=== PATIENT | female | born 1970 | race Hispanic/Latino ===

== ENCOUNTER 2022-11-30 19:16 | Emergency (ER) | payer OTHER ==
[2022-11-30 19:48] LABS: #Eosinphils 0.1 thou/uL (0.0-0.7); #Monocytes 0.3 thou/uL (0.11-0.59); #Neutrophils 5.6 thou/uL (1.40-6.50); %Basophils 0.1 % (0.0-1.0); %Eosinophils 0.5 % (0.0-10.0); %Lymphocytes 38.8 % (21.0-51.0); %Neutrophils 57.3 % (42.0-75.0); Hematocrit 39.6 % (36.0-47.0); Hemoglobin 13.3 g/dL (12.0-16.0); Mean Corpuscular HGB CONC 33.6 g/dL (32.0-36.0); Mean Corpuscular Hemoglobin 30.2 pg (27.0-31.0); Mean Corpuscular Volume 89.8 fl (78.0-98.0); Mean Platelet Volume 12.1 fL (7.4-10.4); Platelet Count 157 10x3/uL (130-400); RBC Distribution Width 12.2 % (11.5-14.5); Red Blood Cell (RBC) Count 4.41 mill/uL (4.20-5.40); White Blood Cell (WBC) Count 9.9 10x3/uL (4.8-10.8)
[2022-11-30 20:12] LABS: ALT (SGPT) 18 U/L (8-55); AST (SGOT) 18 U/L (5-34); Albumin 3.9 g/dL (3.5-5.0); Alkaline Phosphatase 91 U/L (40-110); Anion Gap 13 mmol/L (10-20); BUN (Urea Nitrogen) 18 mg/dL (9.8-20.1); Bilirubin, Total 0.3 mg/dL (0.2-1.2); Calc. Creatinine Clearance 0 mL/min (70-130); Calcium 8.9 mg/dL (7.8-10.44); Carbon Dioxide 24 mmol/L (22-29); Chloride 105 mmol/L (98-107); Estimated GFR 101; Globulin 2.6 g/dL (2.4-3.5); Glucose 163 mg/dL (70-105); Lipase 9 U/L (8-78); Magnesium 1.7 mg/dL (1.6-2.6); Potassium 3.1 mmol/L (3.5-5.1); Protein, Total 6.5 g/dL (6.0-8.3); Sodium 139 mmol/L (136-145)
[2022-11-30 20:21] LABS: Troponin I Less than 0.010 ng/mL (< 0.028)
[2022-11-30] MEDS ORDERED: Potassium Chloride 20 MEQ TAB ONE (21:15)
== END 2022-11-30 23:40 | disposition home or self-care (01) ==
LOC: ERS 19:16
DX: R55 Syncope and collapse (principal); R11.2 Nausea with vomiting, unspecified; E87.6 Hypokalemia; I10 Essential (primary) hypertension
CPT/HCPCS: 36415; 71045; 80053; 83690; 83735; 83880; 84484; 85025; 93005; 96360; 96361

== ENCOUNTER 2023-03-30 08:33 | Outpatient (CLI) | payer BC, OTHER | END 2023-03-30 08:34 | disposition home or self-care (01) | LOC: BICULT 08:33 | PROVIDERS: ATTEND Nurse Practitioner Family | DX: R19.03 Right lower quadrant abdominal swelling, mass and lump (principal) | CPT/HCPCS: 76700; 76856 ==

== ENCOUNTER 2023-05-07 14:20 | Outpatient (CLI) | payer BC ==
[2023-05-07 15:04] LABS: #Eosinphils 0.1 10x3/uL (0.0-0.5); #Monocytes 0.5 10x3/uL (0.0-1.1); %Basophils 0.5 % (0.0-2.0); %Eosinophils 0.7 % (0.0-6.0); %Lymphocytes 36.1 % (18.0-47.0); %Monocytes 5.5 % (0.0-10.0); %Neutrophils 57.1 % (40.0-75.0); Hemoglobin 13.3 g/dL (12.0-15.5); Mean Corpuscular HGB CONC 33.3 g/dL (32.0-36.0); Mean Corpuscular Hemoglobin 29.6 pg (27.0-33.0); Mean Corpuscular Volume 88.9 fl (81.6-98.3); Mean Platelet Volume 11.9 fl (7.4-10.4); Platelet Count 186 10x3/uL (150-450); RBC Distribution Width 12.2 % (11.5-14.5); White Blood Cell (WBC) Count 8.7 10x3/uL (3.5-10.5)
[2023-05-07 15:15] LABS: ALT (SGPT) 22 U/L (8-55); AST (SGOT) 19 U/L (5-34); Albumin 4.6 g/dL (3.5-5.0); Alkaline Phosphatase 107 U/L (40-110); Anion Gap 12 mmol/L (10-20); BUN (Urea Nitrogen) 17 mg/dL (9.8-20.1); Bilirubin, Total 0.4 mg/dL (0.2-1.2); Calc. Creatinine Clearance 0 mL/min (70-130); Calcium 9.5 mg/dL (7.8-10.44); Carbon Dioxide 29 mmol/L (22-29); Chloride 107 mmol/L (98-107); Estimated GFR 106; Globulin 2.6 g/dL (2.4-3.5); Glucose 95 mg/dL (70-105); Potassium 4.3 mmol/L (3.5-5.1); Protein, Total 7.2 g/dL (6.0-8.3); Sodium 144 mmol/L (136-145)
== END 2023-05-07 14:21 | disposition home or self-care (01) ==
LOC: LABBT 14:20
PROVIDERS: ATTEND Surgery
DX: Z01.818 Encounter for other preprocedural examination (principal); K40.90 Unilateral inguinal hernia, without obstruction or gangrene, not specified as recurrent
CPT/HCPCS: 80053; 85025; 93005; 93010